=== PATIENT | male | born 1990 | race African-American/Black ===

== ENCOUNTER 2017-05-20 18:17 | Emergency (ER) | payer OTHER ==
[~2017-05-20] VITALS: Ht 154.9 cm; Wt 103.5 kg
[2017-05-20 18:21] VITALS: Ht 154.9 cm; Wt 103.5 kg
[2017-05-20] MEDS ORDERED: DIPHTH/TET/ACEL PERTUSS (ADULT) 0.5 ML VIAL IM* ONE (19:30)
[2017-05-20] MEDS ORDERED: SILVER SULFADIAZINE 1% 25 GM CR TOP ONE (19:30)
[2017-05-20] MEDS ORDERED: HYDROCODONE/APAP (5/325) TAB PO ONE (19:30)
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
[2017-05-20] MEDS ORDERED: CEPH-443 PO (20:29)
[2017-05-20] MEDS ORDERED: IBUP-1542 PO (20:30)
[2017-05-20] MEDS ORDERED: HYDR-906 PO (20:30)
[2017-05-20] MEDS ORDERED: SSD1C20 TOP (20:30)
[2017-05-20 20:52] VITALS: BP 120/77; PULSE 82; RESP 20
== END 2017-05-20 20:53 | disposition home or self-care (01) ==
LOC: FTE 18:17
DX: T21.22XA Burn of second degree of abdominal wall, initial encounter (principal); X19.XXXA Contact with other heat and hot substances, initial encounter; Y92.000 Kitchen of unspecified non-institutional (private) residence as the place of occurrence of the external cause; Z23 Encounter for immunization
CPT/HCPCS: 90471; 90715